=== PATIENT | male | born 1960 | race Hispanic/Latino ===

== ENCOUNTER 2022-02-08 10:05 | Emergency (ER) | payer MEDICARE, OTHER ==
[~2022-02-08] VITALS: Ht 165.1 cm; Wt 71.2 kg
[2022-02-08] MEDS ORDERED: IBUPROFEN 600 MG TAB PO STA (10:12)
[2022-02-08] MEDS ORDERED: IBUPROFEN600 MG PO (11:31)
== END 2022-02-08 12:09 | disposition home or self-care (01) ==
LOC: ER 10:10
DX: S80.02XA Contusion of left knee, initial encounter (principal); S80.01XA Contusion of right knee, initial encounter; S90.01XA Contusion of right ankle, initial encounter; S90.31XA Contusion of right foot, initial encounter; W01.0XXA Fall on same level from slipping, tripping and stumbling without subsequent striking against object, initial encounter; Y93.01 Activity, walking, marching and hiking; Y92.89 Other specified places as the place of occurrence of the external cause
CPT/HCPCS: 99283